=== PATIENT | female | born 1975 | race Caucasian/White ===

== ENCOUNTER → 2018-09-26 | Outpatient (CLI) | payer OTHER ==
--- NOTE | 2018-09-29 09:35 | KCIC ---
MR of the left wrist and MR of the left hand HISTORY: Left hand and wrist pain, with decrease pharynx. Pain with twisting. Pain at the third and fourth metacarpal bones. TECHNIQUE: Routine multiplanar sequences are obtained. Left wrist Linear full-thickness tear of the triangular fibrocartilage adjacent to the radial attachment, best seen on the thin slices, series 9, image 35 through 37. Measures about 1 mm wide. Mild signal within the extensor carpi ulnaris tendon compatible with tendinosis. Minimal surrounding fluid. Other extensor compartments are intact. Flexor tendons are intact. Median nerve unremarkable. The flexor tendons are intact. Median nerve unremarkable. No significant tear of scapholunate ligament or lunotriquetral ligament is suspected. Alignment of carpal bones is intact. No significant joint effusion. No bone destruction or acute fracture. No significant joint effusion. IMPRESSION: 1. Small linear tear of the triangular fibrocartilage near the radial attachment. 2. Mild extensor carpi ulnaris tendinosis/tenosynovitis. Left hand Scan was centered at the second through fourth metacarpals. No significant joint effusion. No evidence of bone destruction or acute fracture. No acute marrow edema. The visualized tendons are intact. No significant tendon sheath fluid. IMPRESSION: No additional acute abnormality. Electronically signed by: Nuno Pulliam MD (09/29/2018 9:33 AM) [id number]
== END | disposition home or self-care (01) ==
LOC: KCIC MRI 15:29
PROVIDERS: ATTEND Nurse Practitioner Family
DX: S63.592A Other specified sprain of left wrist, initial encounter (principal); M79.642 Pain in left hand; X58.XXXA Exposure to other specified factors, initial encounter; Y93.89 Activity, other specified; Y92.89 Other specified places as the place of occurrence of the external cause; Y99.8 Other external cause status
CPT/HCPCS: 73218; 73221